=== PATIENT | male | born 1940 | race Caucasian/White ===

== ENCOUNTER 2022-11-07 13:10 | Emergency (ER) | payer MEDICARE, SELFPAY ==
[2022-11-07 13:34] VITALS: BP 127/67; PULSE 70; RESP 18; TEMP 36.2; O2SAT 100
--- NOTE | 2022-11-07 13:50 | ED.BACK ---
HPI - Back Pain/Injury General Chief Complaint: Back Pain/Injury Stated Complaint: back pain Time Seen by Provider: 11/07/22 13:33 Source: patient, family () and RN notes reviewed Mode of arrival: wheelchair Limitations: no limitations History of Present Illness HPI Narrative: Patient presents today complaining of severe back pain from shoulders to low back. Reports he has chronic back pain that started at age 12 due to an injury and reports history of 5th 3 bulging discs in the lumbar spine, L2-3 and 4. States this flare of his chronic back pain started approximately 2 weeks ago and has been worsening since onset. She is also reporting tingling in his bilateral legs and groin. Tingling in the groin can be normal for him with these flares, but the tingling in his feet is new and has been occurring over the past 2 days. Denies loss of bowel or bladder control. Chronically speaking, his daily back pain rates 9/10, and he currently rates it 8-9/10. He has been taking Tylenol without relief in his last dose was at 11:00 a.m.. Related Data Home Medications Medication Instructions Recorded Confirmed No Home Medications 11/07/22 11/07/22 Allergies Allergy/AdvReac Type Severity Reaction Status Date / Time Sulfa (Sulfonamide Allergy Severe RASH AND Verified 11/07/22 13:37 Antibiotics) ITCHING sulfamethoxazole Allergy Severe RASH AND Verified 11/07/22 13:37 ITCHING trimethoprim Allergy Severe RASH AND Verified 11/07/22 13:37 ITCHING Corticosteroids Allergy Unknown JITTERY, Verified 11/07/22 13:37 (Glucocorticoids) JUMPY WITH PO DOSES Review of Systems Review of Systems: CONSTITUTIONAL: Denies body aches, fever, chills, or sweats. EYES: Denies visual changes, redness, or discharge. ENT: Denies rhinorrhea, congestion, sore throat, or otalgia. CARDIOVASCULAR: Denies chest pain, palpitations, or edema. RESPIRATORY: Denies cough or dyspnea. GASTROINTESTINAL: Denies abdominal pain, nausea, vomiting, or diarrhea. GENITOURINARY: Denies dysuria or hematuria. SKIN: Denies rash, itching, or wounds. MUSCULOSKELETAL: + back pain NEUROLOGIC: Denies headache, numbness, or weakness.+ tingling in the bilateral lower extremities and groin PSYCH: Denies depression or anxiety. PMFSH Past Medical History Medical History (Updated 11/07/22 @ 14:00 by Sun Clements, [facility], ) Chronic low back pain Comments At time of signature, I have reviewed and agree with nursing past medical, surgical, social and family history unless otherwise noted. Please see nursing chart for further information. There is no relevant family history pertinent to the presenting complaint Exam Narrative: GENERAL: Well-appearing, well-nourished, and in moderate pain distress. HEAD: Normocephalic, atraumatic. EYES: Patient has kept his eyes closed during exam due to pain. ENT: Mucous membranes pink and moist. NECK: Normal AROM without pain. Neck is nontender. CHEST: No respiratory distress. Clear to auscultation. HEART: Regular rate and rhythm. No murmur appreciated. Normal peripheral pulses. MUSCULOSKELETAL: Bony tenderness of the thoracic and lumbar spine. Bilateral lumbar paraspinal muscle tenderness. No thoracic paraspinal muscle tenderness. Distal sensation intact in both feet. Saddle sensation intact. Posterior tibial pulses normal. Dorsiflexion and plantar flexion equal and strong against resistance. Patient's entire legs are tender to palpation. EXTREMITIES: Normal range of motion. No edema. SKIN: Warm, dry, no rash. Capillary refill normal. Normal skin turgor. NEURO: No focal deficits. Alert and oriented x3. Pain increased to ambulate. To room in wheelchair. Course Course Level of Care: Express Care Visit Vital Signs Vital signs: Vital Signs Temperature 97.1 F L 11/07/22 13:34 Pulse Rate 70 11/07/22 13:34 Respiratory Rate 18 11/07/22 13:34 Blood Pressure 127/67 11/07/22 13:34 Pulse O
== END 2022-11-07 13:49 | disposition short-term general hospital (02) ==
PROVIDERS: Emergency Provider Nurse Practitioner; PCP Family Medicine
DX: R20.0 Anesthesia of skin (principal); R20.2 Paresthesia of skin; M54.50 Low back pain, unspecified
CPT/HCPCS: 99212; G0463

== ENCOUNTER 2022-11-07 14:15 | Observation (INO) | payer MEDICARE, SELFPAY ==
[2022-11-07] VITALS (12 sets, daily range): BP systolic 140–163; BP diastolic 68–84; PULSE 55–70; RESP 14–26; TEMP 36.6; O2SAT 95–100
--- NOTE | ~2022-11-07 | MR_ITS ---
MRI of the lumbar spine Clinical History: Back pain, paresthesias Technique: Axial T2-weighted images, and sagittal T1-weighted, T2-weighted, and T2 fat-sat images wer e acquired. Following intravenous administration of 11 cc MultiHance gadolinium, T1-weighted fat-sat imaging was performed in the T1 sagittal planes. Findings: There is no acute fracture the lumbar spine. Probable minimal chronic anterior deformity of L1. There is 3 mm retrolisthesis of L1 over L2. There is 2 mm retrolisthesis of L2 over L3. No suspi cious bone marrow signal abnormality seen. At L1-L2, there is severe degenerative disc narrowing, with diffuse disc bulge and minimal facet arth ropathy. There is no brandon central canal stenosis. There is moderate to severe bilateral neural hilda inal narrowing. At L2-L3, there is severe degenerative disc narrowing, with mild diffuse disc bulge and mild facet ar thropathy. No brandon central canal stenosis. There is severe bilateral neural foraminal narrowing. At L3-L4, there is mild diffuse disc bulge and mild to moderate facet arthropathy. No central canal s tenosis. There is severe bilateral neural foraminal narrowing. At L4-L5, there is mild diffuse disc bulge with advanced facet arthropathy. No central canal stenosis . There is severe bilateral neural foraminal narrowing. At L5-S1, there is minimal disc bulge. There is advanced facet arthropathy. No central canal stenosis . There is moderate left neural foraminal narrowing. Right neural foramen preserved. Paravertebral soft tissues are unremarkable. No abnormal postcontrast enhancement identified. Impression: Moderate to advanced degenerative spondylosis, with multilevel severe neural foraminal narrowing, as detailed above. 3 mm retrolisthesis of L1 over L2. 2 mm retrolisthesis of L2 over L3. Possible minimal chronic anterior wedging deformity of L1. Reviewed, dictated and finalized at [facility]. Impression: Moderate to advanced degenerative spondylosis, with multilevel severe neural fo raminal narrowing, as detailed above. 3 mm retrolisthesis of L1 over L2. 2 mm retrolisthesis of L2 over L3. Possible minimal chronic anterior wedging deformity of L1.
--- NOTE | ~2022-11-07 | CT_ITS ---
EXAMINATION: CT thoracic lumbar wo con DATE: 11/07/2022 16:31 INDICATION: back pain, LBP X 1 week, hx of multiple injuries . TECHNIQUE: Computed tomography (CT) of the thoracic and lumbar spine was performed without intravenou s contrast. The dose-length product was 677.48 mGy-cm. COMPARISON: None FINDINGS: THORACIC SPINE: Severe osteopenia. Vertebral body alignment intact. Multilevel mild-moderate disc space narrowing and marginal osteophytosis. Mild anterior wedge deformity at T11 and T12. 3 mm left paracentral protrusi on at T10-11. Moderate facet arthropathy at T11-12. Atherosclerotic calcifications. No severe central canal narrowing. Moderate bilateral neural foraminal narrowing at T10-11. Right medial basal scar/at electasis. Mild ascending aortic ectasia and arch calcification. Moderate hiatal hernia. LUMBAR SPINE: Severe osteopenia. 5 nonrib-bearing lumbar-type vertebral bodies. Pedicles intact. Bone island in the right sacrum. Mild anterior wedge deformity at L1. 2 mm retrolistheses at L1-2 through L3-4. Multile venkatesh severe facet sclerosis and hypertrophy with interspinous narrowing. Severe disc space narrowing w ith vacuum phenomenon at L1-2 and L2-3. 7 mm left paracentral protrusion at L1-2. Atherosclerotic leti cifications. Multilevel severe neural foraminal narrowing. No severe central canal stenosis. Severe s igmoid diverticulosis. IMPRESSION: 1. Multilevel mild anterior wedge deformity at T11-L1, may be physiologic or represent acute or chron ic compression deformities, correlate with history of trauma, pain/tenderness, and outside studies if available. 2. Moderate bilateral neural foraminal narrowing at T10-11. 3. Multilevel moderate degenerative disc disease in the thoracic spine. 4. Severe degenerative disc disease at L1-2 and L2-3. 7 mm left paracentral protrusion at L1-2. 5. Multilevel severe bilateral neural foraminal narrowing in the lumbar spine. 6. Multilevel severe facet arthropathy in the lumbar spine. Reviewed, dictated and finalized at [facility]. IMPRESSION: 1. Multilevel mild anterior wedge deformity at T11-L1, may be physiologic or re present acute or chronic compression deformities, correlate with history of tra hailee, pain/tenderness, and outside studies if available. 2. Moderate bilateral neural foraminal narrowing at T10-11. 3. Multilevel moderate degenerative disc disease in the thoracic spine. 4. Severe degenerative disc disease at L1-2 and L2-3. 7 mm left paracentral pro trusion at L1-2. 5. Multilevel severe bilateral neural foraminal narrowing in the lumbar spine. 6. Multilevel severe facet arthropathy in the lumbar spine.
--- NOTE | ~2022-11-07 | MR_ITS ---
MRI of the thoracic spine Clinical History: Back pain, paresthesias Technique: Axial T2-weighted and gradient images, and sagittal T1-weighted, T2-weighted, and STIR tadeo ges were acquired. Following intravenous administration of 11 cc MultiHance gadolinium, T1-weighted f at-sat imaging was performed in the axial and sagittal planes. Findings: There is no fracture or subluxation of the thoracic spine. Vertebral bodies maintain normal height and alignment. No bone marrow signal abnormality seen. There is a central disc protrusion at T10-T11, which minimally flattens the ventral cord. No other si gnificant disc bulge or herniation seen in the remainder of the thoracic spine. No other areas of spi nal canal stenosis or cord compression. No epidural mass or collection seen. No abnormal signal seen in the spinal cord. Paravertebral soft tissues are unremarkable. No abnormal postcontrast enhancement identified. Impression: Central disc protrusion at T10-T11 which minimally flattens the ventral cord. No other significant findings. Reviewed, dictated and finalized at [facility]. Impression: Central disc protrusion at T10-T11 which minimally flattens the ventral cord. No other significant findings.
--- NOTE | 2022-11-07 16:03 | ED.BACK ---
HPI - Back Pain/Injury General Chief Complaint: Back Pain/Injury <KARTIK Barrios Last Filed: 11/07/22 19:41> Stated Complaint: back pain <KARTIK Barrios Last Filed: 11/07/22 19:41> Time Seen by Provider: 11/07/22 15:12 <KARTIK Barrios Last Filed: 11/07/22 19:41> Source: patient <KARTIK Barrios Last Filed: 11/07/22 19:41> Mode of arrival: ambulatory <KARTIK Barrios Last Filed: 11/07/22 19:41> Limitations: no limitations <KARTIK Barrios Last Filed: 11/07/22 19:41> History of Present Illness HPI Narrative: Patient is an 81-year-old male who presents to the ED with report of back pain. Patient reports having pain from the top of his neck down to his buttocks. Patient has a history of chronic back pain related to injuries he sustained as a teenager. He states pain has been progressively worsening over the last 1 week after laying flat on a table for 9 hours for a skin cancer removal surgery on his right ear, performed at [facility]. The pain was much worse this morning when he woke up, which prompted his presentation. He reports having tingling in his extremities and groin region, but denies numbness. He has been able to ambulate. Denies significant weakness. He denies any bowel or bladder incontinence, urinary retention. Denies abdominal pain, nausea, vomiting, fevers. <KARTIK Barrios Last Filed: 11/07/22 19:41> Related Data Home Medications: Home Medications Medication Instructions Recorded Confirmed No Home Medications 11/07/22 11/07/22 <KARTIK Barrios Last Filed: 11/07/22 19:41> Allergies/Adverse Reactions: Allergies Allergy/AdvReac Type Severity Reaction Status Date / Time Sulfa (Sulfonamide Allergy Severe RASH AND Verified 11/07/22 20:07 Antibiotics) ITCHING sulfamethoxazole Allergy Severe RASH AND Verified 11/07/22 20:07 ITCHING trimethoprim Allergy Severe RASH AND Verified 11/07/22 20:07 ITCHING Corticosteroids Allergy Unknown JITTERY, Verified 11/07/22 20:07 (Glucocorticoids) JUMPY WITH PO DOSES <KARTIK Barrios Last Filed: 11/07/22 19:41> Review of Systems Review of Systems: CONSTITUTIONAL: Denies fever, chills, or sweats. CARDIOVASCULAR: Denies chest pain. RESPIRATORY: Denies dyspnea. GASTROINTESTINAL: Denies abdominal pain, nausea, vomiting. GENITOURINARY: Denies incontinence, retention, dysuria or hematuria. MUSCULOSKELETAL: See HPI. NEUROLOGIC: See HPI. <KARTIK Barrios Last Filed: 11/07/22 19:41> All systems reviewed & are unremarkable except as noted in HPI and below <KARTIK Barrios Last Filed: 11/07/22 19:41> [facility] Past Medical History Medical History: Medical History (Updated 11/08/22 @ 00:01 by Fran Javier) Basal cell carcinoma Chronic low back pain Depression with anxiety Elevated blood pressure reading H/O gastroesophageal reflux (GERD) History of prostate cancer treated with see Hyperlipidemia Hypertension Hypothyroidism <KARTIK Barrios Last Filed: 11/07/22 19:41> Surgical History Surgical History: Surgical History (Updated 11/07/22 @ 22:06 by Kari Tenorio NP) H/O cataract extraction with lens implant H/O foot surgery hardware placed to left leg heel and toe. Hardware was placed. H/O inguinal hernia repair History of removal of pigmented skin lesion Status post trigger finger release <KARTIK Barrios Last Filed: 11/07/22 19:41> Family History Family History: Family History (Updated 11/07/22 @ 20:19 by Elliott Manzanares RN) Mother Lung disease Father Ruptured aortic aneurysm Other No problems noted. Sibling Aortic valve replaced Sibling Acute myocardial infarction <KARTIK Barrios Last Filed: 11/07/22 19:41> Social History Social Hist
[2022-11-07] MEDS: ACETAMINOPHEN 500 MG TABLET 1000 MG PO (16:42)
[2022-11-07] MEDS: ONDANSETRON INJ 4 MG/2 ML VIAL IV PUSH (16:42)
[2022-11-07] MEDS: MORPHINE SULFATE (*CRX) 4 MG/ML INJ IV PUSH (16:42)
[2022-11-07 16:50] LABS: Basophils Absolute Auto 0.1 K/mm3 (0.0-0.1); Basophils Percent Auto 0.8 % (0.2-1.2); Eosinophils Percent Auto 0.6 % (0-4.4); Hematocrit 36.9 % (42.0-52.0); Hemoglobin 12.7 g/dL (14.0-18.0); Immature Granulocyte Absolute 0.07 K/mm3 (0.00-0.031); Immature Granulocyte Percent A 1.1 % (0-0.5); Lymphocytes Absolute Auto 2.58 K/mm3 (0.9-3.2); Lymphocytes Percent Auto 38.7 % (18.3-44.2); Mean Corpuscular HGB Conc 34.4 g/dl (32-36); Mean Corpuscular Hemoglobin 31.7 pg (26-34); Mean Platelet Volume 9.1 fl (7.4-10.4); Monocytes Percent Auto 15.6 % (2.6-8.5); Neutrophils Absolute Auto 2.9 K/mm3 (1.3-6.7); Neutrophils Percent Auto 43.2 % (45.5-73.1); Platelet Count Result 299 k/mm3 (150-375); Red Blood Count 4.01 M/mm3 (4.6-6.20); Red Cell Distribution Width 12.4 % (11.5-14.5); White Blood Count 6.7 K/mm3 (4.5-10.0)
[2022-11-07 17:01] LABS: Alanine Aminotransferase 39 U/L (6-50); Albumin Level 3.3 g/dL (3.5-5.1); Alkaline Phosphatase 63 U/L (38-126); Anion Gap 5 mmol/L (8-16); Aspartate Amino Transferase 47 U/L (17-59); Bilirubin,Total 0.9 mg/dL (0.2-1.3); Blood Urea Nitrogen 18 mg/dL (9-20); Calcium 8.5 mg/dL (8.4-10.2); Carbon Dioxide 27 mmol/L (22-30); Chloride 102 mmol/L (98-107); Estimated CRCL calculation 62 ml/min; Estimated Glomerular Filt Rate > 60; Glucose 95 mg/dL (65-110); Sodium 134 mmol/L (137-145)
[2022-11-07] MEDS: CYCLOBENZAPRINE HCL 5 MG TABLET PO (19:06)
[2022-11-07 19:34] LABS: CRP 2.7 mg/dL (<1.0)
--- NOTE | 2022-11-07 19:41 | PM.IMHP ---
H&P: HPI History of Present Illness Date/Time: 11/07/22 19:41 Chief Complaint: Back pain Narrative: this is an 81-year-old male patient who came to the emergency room with complaints of back pain. The patient has no prior medical history however he does have chronic back pain related to some injuries that he sustained as a teenager. The patient's back pain has been progressively getting worse over the last week. The patient recently had a procedure on his right year where he had been laying flat on the table for 9 hours. The patient stated that his back pain has been worse every since then. He has been having a tingling to his extremities and is growing area. He denies any urinary retention or any incontinence of bowel or bladder. No nausea vomiting diarrhea or fever. The patient is able to move all extremities without difficulty. H&H is 12.7 and 36.9. Sodium is 130. C reactive protein 2.7. Thoracic lumbar spine is read as a following 1. Multilevel mild anterior wedge deformity at T11-L1, may be physiologic or represent acute or chronic compression deformities, correlate with history of trauma, pain/tenderness, and outside studies if available. 2. Moderate bilateral neural foraminal narrowing at T10-11. 3. Multilevel moderate degenerative disc disease in the thoracic spine. 4. Severe degenerative disc disease at L1-2 and L2-3. 7 mm left paracentral protrusion at L1-2. 5. Multilevel severe bilateral neural foraminal narrowing in the lumbar spine. 6. Multilevel severe facet arthropathy in the lumbar spine. the patient was given Tylenol, morphine, Flexeril and Zofran. The patient stated relief with that concoction. Neurosurgeon has been consulted. The patient is being admitted to observation status on the date of service of 11/07/2022. Review of Systems Review of Systems: All systems reviewed & are unremarkable except as noted in HPI and below Constitutional: Constitutional: Reports as per HPI and Reports no additional constitutional complaints Eyes: Eyes: Reports as per HPI and Reports no additional eye complaints ENT: Reports system reviewed and no additional complaints, except as documented and Reports Normal hearing present Cardiovascular: Cardiovascular: Reports no additional cardiovascular complaints Respiratory: Respiratory: Reports no additional respiratory complaints and Reports no additional respiratory complaints Gastrointestinal: Gastrointestinal: Reports as per HPI and Reports no additional gastrointestinal complaints Musculoskeletal: Musculoskeletal: Reports no additional musculoskeletal complaints Integumentary/Breasts: Skin/Breast: Reports system reviewed and no additional complaints, except as docu and Reports as per HPI Neurologic: Reports system reviewed and no additional complaints, except as documented, Reports as per HPI and Reports Normal hearing present Psychiatric: Psychiatric: Reports no additional psychiatric complaints and Reports as per HPI Endocrine: Endocrine: Reports no additional endocrine complaints Hematologic/Lymphatic: Hematologic/Lymphatic: Reports no additional hematologic/lymphatic complaints Allergic/Immunologic: Allergic/Immunologic: Reports no additional allergic/immunologic complaints [facility] Past Medical History Medical History (Updated 11/07/22 @ 22:09 by Kari Tenorio NP) Basal cell carcinoma Chronic low back pain Depression with anxiety Elevated blood pressure reading H/O gastroesophageal reflux (GERD) History of prostate cancer treated with see Hyperlipidemia Hypertension Hypothyroidism Surgical History Surgical History (Updated 11/07/22 @ 22:06 by Kari Tenorio NP) H/O cataract extraction with lens implant H/O foot surgery hardware placed to left leg heel and toe. Hardware was placed. H/O inguinal hernia repair History of removal of pigmented skin lesion Status post trigger finger release Family History Family History (Updated 11/07/22
[2022-11-07 19:44] LABS: Erythrocyte Sedimentation Rate 19 mm/hr (0-20)
--- NOTE | 2022-11-07 20:00 | ADMGEN ---
This patient, Spencer Gilbert, was admitted to Medical Room 250-01. Patient/family oriented to hospital policies and general routines including ID bracelet, bed and alarms, visiting hours, pain management, procedures, bathroom and other care routines, personal items, smoking policy, room service/diet, and visiting hours. Information on how to activate the Rapid Response Team has been discussed. Patient/Family are encouraged to report perceived risks to care and to ask questions if they do not understand what they are told or what they should do.
[2022-11-08] MEDS: CYCLOBENZAPRINE HCL 5 MG TABLET PO (05:22)
[2022-11-08] MEDS: HYDROcodone/acetaminophen (*CRX) 5-325 MG TABLET 1 TAB PO (05:22)
[2022-11-08 05:33] LABS: Basophils Absolute Auto 0.1 K/mm3 (0.0-0.1); Eosinophils Absolute Auto 0.1 K/mm3 (0-0.3); Eosinophils Percent Auto 1.4 % (0-4.4); Hematocrit 38.6 % (42.0-52.0); Hemoglobin 12.6 g/dL (14.0-18.0); Immature Granulocyte Absolute 0.05 K/mm3 (0.00-0.031); Immature Granulocyte Percent A 0.8 % (0-0.5); Lymphocytes Percent Auto 46.3 % (18.3-44.2); Mean Corpuscular HGB Conc 32.6 g/dl (32-36); Mean Corpuscular Volume 94.8 fl (80-100); Mean Platelet Volume 8.9 fl (7.4-10.4); Monocytes Absolute Auto 0.9 K/mm3 (0.1-0.6); Monocytes Percent Auto 13.6 % (2.6-8.5); Neutrophils Absolute Auto 2.3 K/mm3 (1.3-6.7); Neutrophils Percent Auto 36.9 % (45.5-73.1); Platelet Count Result 288 k/mm3 (150-375); Red Blood Count 4.07 M/mm3 (4.6-6.20); Red Cell Distribution Width 12.3 % (11.5-14.5); White Blood Count 6.3 K/mm3 (4.5-10.0)
[2022-11-08 05:43] LABS: Alanine Aminotransferase 41 U/L (6-50); Albumin Level 3.2 g/dL (3.5-5.1); Alkaline Phosphatase 58 U/L (38-126); Anion Gap 2 mmol/L (8-16); Aspartate Amino Transferase 38 U/L (17-59); Bilirubin,Total 0.7 mg/dL (0.2-1.3); Blood Urea Nitrogen 19 mg/dL (9-20); Calcium 8.1 mg/dL (8.4-10.2); Carbon Dioxide 31 mmol/L (22-30); Chloride 102 mmol/L (98-107); Estimated CRCL calculation 53 ml/min; Estimated Glomerular Filt Rate > 60; Glucose 91 mg/dL (65-110); Magnesium 1.9 mg/dL (1.6-2.3); Sodium 135 mmol/L (137-145)
[2022-11-08 06:00] VITALS: BP 143/67; PULSE 29; RESP 18; TEMP 36.4; O2SAT 98
--- NOTE | 2022-11-08 07:25 | PCOTNOTE ---
Will complete OT evaluation following neurosurgery consult and recommendations.
--- NOTE | 2022-11-08 08:42 | PC.NURSE ---
pt to MRI via wheelchair
--- NOTE | 2022-11-08 10:10 | PC.NURSE ---
pt returned from MRI
[2022-11-08] MEDS: MORPHINE SULFATE (*CRX) 2 MG/ML INJ IV PUSH (10:15)
[2022-11-08] MEDS: LIDOCAINE 5% PATCH 1 PATCH TRANSDERM (10:23)
--- NOTE | 2022-11-08 13:46 | PM.DS ---
DS: Admitting Diagnosis Discharge Date 11/08/2022 Admitting Diagnosis Back pain DS: Discharge Diagnosis Discharge Diagnosis (1) Low back pain at multiple sites: Code(s): M54.50 - Low back pain, unspecified Status: Acute (2) Basal cell carcinoma: Code(s): C44.91 - Basal cell carcinoma of skin, unspecified Status: Acute (3) Elevated blood pressure reading: Code(s): R03.0 - Elevated blood-pressure reading, without diagnosis of hypertension Status: Acute DS: Summary Hospital Course Hospital Course: Date of admission: 11/07/2022 Date of discharge: 11/08/2022 Spencer Gilbert is an 81-year-old male with a history of basal cell carcinoma s/p recent skin cancer removal of the right year, chronic low back pain, GERD, prostate cancer, hypertension, hypothyroidism, qian lipidemia who presented to the emergency department on 11/07/2022 from urgent care with complaints of back pain worsening over the past 1 week. The patient felt the pain was worsened after lying flat on operating table for many hours for recent skin cancer removal procedure. On presentation to the ED, his vital signs were stable, he was afebrile, laboratory workup unremarkable, thoracic/lumbar CT showed multilevel mild anterior wedge deformity at T11 through L1, moderate bilateral neural foraminal narrowing, multilevel degenerative disc disease. The patient was admitted to the hospitalist service for further evaluation and management. Case was discussed with Neurosurgery who did review the patient's imaging. Patient did not have pain in his buttocks or legs. He complained of numbness and tingling at the base of his spine but did not have numbness or tingling in his legs. He did not have saddle anesthesia or bowel or bladder dysfunction. He was able to ambulate independently. I discussed case with , neurosurgery, via phone who recommended prompt outpatient follow-up. Patient will be seen in the office tomorrow afternoon. Discussed with the patient and his your agreeable with this plan. Short course of analgesics provided and patient was educated on red flags for back pain and worrisome signs and symptoms for which to return to the emergency department. He was discharged in hemodynamically stable condition on 11/08/2022. Time Spent with Patient Time attestation: Total time spent providing and/or coordinating discharge services: 50 minutes Time spent: Greater than 30 minutes Exam Narrative: General:well-nourished, well-appearing 81-year-old male, sitting up in bed, comfortable, NARD Neuro: awake, alert and oriented x4, speech clear, no focal neuro deficits noted HEENMT: normocephalic, atraumatic, EOMI, sclerae anicteric Respiratory: clear to auscultation bilaterally, nonlabored breathing Cardio: regular rate, regular rhythm with S1-S2 Abdomen: nondistended, normoactive bowel sounds, soft, nontender to palpation Extremities: no edema, erythema, or tenderness to palpation, DP pulses 2+ bilaterally, lower extremity strength 5/5, able to perform plantar flexion and dorsiflexion, sensation intact Skin: Dressing over right ear, no rashes or lesions, warm and dry Psych: appropriate mood and affect, judgment and insight intact DS: Data Data Completed and Pending Labs on day of discharge: Labs from last 24 hours 11/08/22 11/07/22 11/07/22 05:15 19:15 16:40 WBC 6.3 6.7 RBC 4.07 L 4.01 L Hgb 12.6 L 12.7 L Hct 38.6 L 36.9 L MCV 94.8 92.0 MCH 31.0 31.7 MCHC 32.6 34.4 RDW 12.3 12.4 Plt Count 288 299 MPV 8.9 9.1 Immature Gran % (Auto) 0.8 H 1.1 H Neut % (Auto) 36.9 L 43.2 L Lymph % (Auto) 46.3 H 38.7 Cuming % (Auto) 13.6 H 15.6 H Eos % (Auto) 1.4 0.6 Baso % (Auto) 1.0 0.8 Lymph # (Auto) 2.90 2.58 Cuming # (Auto) 0.9 H 1.0 H Eos # (Auto) 0.1 0.0 Baso # (Auto) 0.1 0.1 Abs Immat Gran (auto) 0.05 H 0.07 H Absolute Neuts (auto) 2.3 2.9 Absolute Nu
== END 2022-11-08 14:34 | disposition home or self-care (01) ==
LOC: ANHED 19:22 → ANH2MED 20:53
PROVIDERS: Nurse Practitioner; Admitting Provider Student in an Organized Health Care Education/Training Program; Emergency Provider Physician Assistant; PCP Family Medicine; Visit Provider Physician Assistant
DX: M48.05 Spinal stenosis, thoracolumbar region (principal); M51.35 Other intervertebral disc degeneration, thoracolumbar region; M48.55XA Collapsed vertebra, not elsewhere classified, thoracolumbar region, initial encounter for fracture; M47.816 Spondylosis without myelopathy or radiculopathy, lumbar region; C44.91 Basal cell carcinoma of skin, unspecified; I10 Essential (primary) hypertension; F41.8 Other specified anxiety disorders; K21.9 Gastro-esophageal reflux disease without esophagitis; E78.5 Hyperlipidemia, unspecified; E03.9 Hypothyroidism, unspecified; Z85.46 Personal history of malignant neoplasm of prostate; F10.90 Alcohol use, unspecified, uncomplicated
CPT/HCPCS: 36415; 72128; 72131; 72157; 72158; 80053; 83735; 84443; 85025; 85652; 86140; 96374; 96375; 96376; 99212; 99285; A9270; A9577; G0378; G0463; J2270; J2405